=== PATIENT | female | born 1960 | race Caucasian/White ===

== ENCOUNTER → 2018-10-11 17:35 | Outpatient (CLI) | payer OTHER, SELFPAY ==
--- NOTE | 2018-10-11 17:47 | XR_ITS ---
XR knee LT 3V HISTORY: Posttraumatic pain ITS.REASON: PAIN ORDERING PHYSICIAN: Gaurav Jacobo MD PATIENT AGE: 58 years COMPARISON: None FINDINGS: No fracture or dislocation. No lytic or blastic change. Normal mineralization. No significant arthritic changes evident. Increased density is present in the suprapatellar region consistent with effusion. There is mild soft tissue swelling in the infrapatellar region is well IMPRESSION: Suprapatellar effusion with mild soft tissue swelling in the infrapatellar region otherwise negative
[2018-10-11 18:52] LABS: Free T4 (Free Thyroxine) 0.86 ng/dl (0.76-1.46)
[2018-10-13 07:38] LABS: Triiodothyronine (T3) Total 94 ng/dL (71-180)
[2018-10-14 08:25] LABS: Triiodothyronine (T3) Free 2.4 pg/mL (2.0-4.4)
== END ==
PROVIDERS: Visit Provider Internal Medicine Adolescent Medicine
DX: E03.9 Hypothyroidism, unspecified (principal)
CPT/HCPCS: 36415; 73562; 84439; 84480; 84481